=== PATIENT | female | born 2000 | race Caucasian/White ===

== ENCOUNTER 2018-06-20 10:08 | Inpatient (IN) | payer MEDICAID ==
[~2018-06-20] VITALS: Ht 167.6 cm; Wt 84.0 kg
[2018-06-20] MEDS ORDERED: SODIUM CHLORIDE FLUSH 10ML SYR IVF ONE (10:30)
[2018-06-20] MEDS ORDERED: SODIUM CHLORIDE 0.9% 1,000ML IVBOLUS ONE (10:30)
[2018-06-20] MEDS ORDERED: MORPHINE SULFATE 4 MG/ML, 1ML ONE ×2 (10:42→11:38)
[2018-06-20] MEDS: MORPHINE SULFATE 4 MG/ML, 1ML IVPush PRN ×2 (10:45→11:40)
[2018-06-20 10:48] LABS: BASOPHILS # (AUTO) 0.09 x10^3/uL (0-0.3); BASOPHILS % (AUTO) 1 % (0-1); EOSINOPHILS # (AUTO) 0.05 x10^3/uL (0-0.8); EOSINOPHILS % (AUTO) 0 % (1-7); LYMPHOCYTES # (AUTO) 1.87 x10^3/uL (1-6.1); LYMPHOCYTES % (AUTO) 12 % (22-44); MD NO; MEAN CORPUSCULAR HEMOGLOBIN 28.6 pg (27.0-34.8); MEAN CORPUSCULAR HGB CONC 32.7 g/dL (32.4-35.8); MEAN CORPUSCULAR VOLUME 87.3 fL (80-100); MEAN PLATELET VOLUME 6.5 fL (7.4-10.4); MONOCYTES # (AUTO) 0.94 x10^3/uL (0-1.4); MONOCYTES % (AUTO) 6 % (2-9); NEUTROPHILS # (AUTO) 12.38 x10^3/uL (1.8-8.0); NEUTROPHILS % (AUTO) 81 % (42-75); PLATELET COUNT 379 x10^3/uL (130-400); RED BLOOD COUNT 4.91 x10^6/uL (3.82-5.3); RED CELL DISTRIBUTION WIDTH 13.4 % (9.6-15.2)
[2018-06-20 11:00] LABS: ALANINE AMINOTRANSFERASE 22 U/L (12-78); ALBUMIN 3.8 g/dL (3.4-5.0); ANION GAP 7 mmol/L (5-15); CALCIUM 8.8 mg/dL (8.5-10.1); CHLORIDE 110 mmol/L (98-107); CREATININE 0.88 mg/dL (0.55-1.02)
[2018-06-20 11:04] LABS: ALKALINE PHOSPHATASE 98 U/L (45-117); BILIRUBIN,TOTAL 0.4 mg/dL (0.2-1.0); TOTAL PROTEIN 7.5 g/dL (6.4-8.2)
[2018-06-20 11:48] LABS: MICROSCOPIC AUTO
[2018-06-20 12:05] LABS: CULTURE INDICATED? YES
[2018-06-20] MEDS ORDERED: KETOROLAC 30 MG/1 ML IVPush ONE (13:00)
[2018-06-20] MEDS ORDERED: CEFTRIAXONE PMX 1GM/50ML 50 ML IVPB ONE (13:00)
[2018-06-20] MEDS ORDERED: KETOROLAC 30 MG/1 ML ONE (13:02)
[2018-06-20] MEDS ORDERED: CEFTRIAXONE PMX 1GM/50ML 50 ML ONE (13:02)
[2018-06-20] MEDS ORDERED: CEFTRIAXONE PMX 1GM/50ML 50 ML IV SCH (13:30)
[2018-06-20] MEDS ORDERED: hydrALAzine 20 MG/ML, 1ML IVPush PRN (13:30)
[2018-06-20] MEDS ORDERED: POLYETHYLENE GLYCOL 17 GM PACKET PO PRN (13:30)
[2018-06-20] MEDS ORDERED: ENOXAPARIN 40 MG/0.4 ML SQ SCH ×3 (13:30→22:00)
[2018-06-20] MEDS ORDERED: DOCUSATE 100 MG CAPSULE PO PRN (13:30)
[2018-06-20] MEDS ORDERED: ACETAMINOPHEN 325 MG TABLET PO PRN (13:30)
[2018-06-20] MEDS ORDERED: BISACODYL 10 MG SUPP PR PRN (13:30)
[2018-06-20] MEDS ORDERED: ONDANSETRON 2MG/ML, 2ML IVPush PRN (13:30)
[2018-06-20] MEDS: NS + 20MEQ KCL 1,000 ML IV SCH ×2 (15:00→22:05)
[2018-06-20 15:02] VITALS: BP 122/79
[2018-06-20] MEDS ORDERED: PHENAZOPYRIDINE 200 MG TABLET PO PRN (16:00)
[2018-06-20] MEDS: KETOROLAC 30 MG/1 ML IV PRN (18:28)
[2018-06-20 19:12] VITALS: BP 114/70
[2018-06-21 01:12] VITALS: BP 112/74
[2018-06-21] MEDS: NS + 20MEQ KCL 1,000 ML IV SCH (04:15)
[2018-06-21] MEDS: KETOROLAC 30 MG/1 ML IV PRN (04:15)
[2018-06-21 06:00] LABS: ANION GAP 7 mmol/L (5-15); CHLORIDE 112 mmol/L (98-107)
[2018-06-21 06:03] LABS: CREATININE 0.69 mg/dL (0.55-1.02)
[2018-06-21 06:26] LABS: BASOPHILS # (AUTO) 0.03 x10^3/uL (0-0.3); BASOPHILS % (AUTO) 0 % (0-1); EOSINOPHILS # (AUTO) 0.14 x10^3/uL (0-0.8); EOSINOPHILS % (AUTO) 1 % (1-7); LYMPHOCYTES # (AUTO) 3.05 x10^3/uL (1-6.1); LYMPHOCYTES % (AUTO) 25 % (22-44); MD SCAN; MEAN CORPUSCULAR HEMOGLOBIN 29.7 pg (27.0-34.8); MEAN CORPUSCULAR HGB CONC 33.5 g/dL (32.4-35.8); MEAN CORPUSCULAR VOLUME 88.7 fL (80-100); MEAN PLATELET VOLUME 7.4 fL (7.4-10.4); MONOCYTES # (AUTO) 0.99 x10^3/uL (0-1.4); MONOCYTES % (AUTO) 8 % (2-9); NEUTROPHILS # (AUTO) 8.16 x10^3/uL (1.8-8.0); NEUTROPHILS % (AUTO) 66 % (42-75); PLATELET COUNT 266 x10^3/uL (130-400); RED BLOOD COUNT 3.93 x10^6/uL (3.82-5.3)
[2018-06-21 07:33] VITALS: BP 119/79
[2018-06-21] MEDS ORDERED: MAGNESIUM CITRATE 300ML ORAL SOL PO ONE (10:30)
[2018-06-21] MEDS ORDERED: CEFD300C37 PO (13:33)
[2018-06-21 14:12] VITALS: BP 118/77
== END 2018-06-21 15:35 | disposition home or self-care (01) | DRG 872 ==
LOC: ED 12:40 → EDIP 13:18 → 4NOR 13:47
PROVIDERS: ADMIT Hospitalist; ATTEND Hospitalist
DX: A41.9 Sepsis, unspecified organism (principal); N10 Acute pyelonephritis; F17.210 Nicotine dependence, cigarettes, uncomplicated; K59.00 Constipation, unspecified; R73.9 Hyperglycemia, unspecified; F15.10 Other stimulant abuse, uncomplicated; N92.1 Excessive and frequent menstruation with irregular cycle; N93.8 Other specified abnormal uterine and vaginal bleeding; Z82.49 Family history of ischemic heart disease and other diseases of the circulatory system; Z83.3 Family history of diabetes mellitus; Z90.89 Acquired absence of other organs; Z80.9 Family history of malignant neoplasm, unspecified
CPT/HCPCS: 36415; 74021; 74176; 76700; 76830; 80048; 80053; 81001; 83605; 84703; 85025; 87040; 87086; 96361; 96374; 96375; 96376; 99285; G0378; J0696; J1650; J1885; J3480; J7030

== ENCOUNTER 2018-06-29 22:16 | Emergency (ER) | payer MEDICAID ==
[~2018-06-29] VITALS: Ht 167.6 cm; Wt 74.8 kg
[~2018-06-29 22:16] MED LIST: CEFD300C37 PO
[2018-06-29 22:18] VITALS: BP 138/91
[2018-06-29] MEDS ORDERED: CEFTRIAXONE 1,000 MG IM ONE (23:00)
== END 2018-06-29 23:09 | disposition home or self-care (01) ==
LOC: ED 23:03
DX: S16.1XXA Strain of muscle, fascia and tendon at neck level, initial encounter (principal); G44.319 Acute post-traumatic headache, not intractable; N39.0 Urinary tract infection, site not specified; V47.1XXA Car passenger injured in collision with fixed or stationary object in nontraffic accident, initial encounter; Y93.89 Activity, other specified; Y92.89 Other specified places as the place of occurrence of the external cause; Y99.8 Other external cause status; F17.200 Nicotine dependence, unspecified, uncomplicated
CPT/HCPCS: 70450; 99284; J0696

== ENCOUNTER 2018-11-12 13:12 | Emergency (ER) | payer MEDICAID ==
[~2018-11-12] VITALS: Ht 167.6 cm; Wt 80.1 kg
[2018-11-12 13:22] VITALS: BP 149/79
--- NOTE | 2018-11-12 15:23 | NUR ---
CALLED FOR ROOM, NO ANSWER
--- NOTE | 2018-11-12 15:35 | NUR ---
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
--- NOTE | 2018-11-12 15:57 | NUR ---
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
== END 2018-11-12 16:05 | disposition left against medical advice (07) ==
LOC: ED 16:02
DX: N75.0 Cyst of Bartholin's gland (principal)
CPT/HCPCS: 99281